=== PATIENT | male | born 1980 | race Hispanic/Latino ===

== ENCOUNTER 2018-06-22 22:39 | Emergency (ER) | payer SELFPAY ==
[2018-06-22] MEDS ORDERED: IBUPROFEN 400 MG TAB ONE (23:46)
--- NOTE | 2018-06-23 01:38 | EDPHYS ---
Physician Documentation [facility] Name: Brad Hdz Age: 38 yrs Sex: Male : 1980 Arrival Date: 06/22/2018 Time: 22:43 Bed 16 Private MD: ED Physician Gorge Jovel HPI: 06/22 23:30 This 38 yrs old Male presents to ER via Ambulatory with complaints of Fall cp Injury, Wrist Injury, Finger Injury, Hand Injury. 23:30 The patient or guardian complains of decreased range of motion, injury, pain, that is cp acute, swelling, tenderness. The complaints affect the right hand, right elbow and right forearm. Context: resulted from a fall. Onset: The symptoms/episode began/occurred 1 week(s) ago. Treatment prior to arrival includes: evaluated at [place] [facility] but patient reports no xrays were taken. 23:30 Associated signs and symptoms: Pertinent negatives: erythema, numbness, tingling, cp weakness. Historical: - Allergies: 06/23 00:10 No Known Allergies; ak1 - Home Meds: 00:10 None [Active]; ak1 - PMHx: 00:10 None; ak1 - PSHx: 00:10 Unable to obtain; ak1 - Immunization history: Last tetanus immunization: - up to date. - Social history:: Smoking status: unknown. - Ebola Screening: : No symptoms or risks identified at this time. ROS: 06/22 23:35 Constitutional: Negative for body aches, chills, fever, poor PO intake. cp 23:35 Eyes: Negative for injury, pain, redness, and discharge. cp 23:35 ENT: Negative for drainage from ear(s), ear pain, sore throat, difficulty swallowing, difficulty handling secretions. 23:35 Cardiovascular: Negative for chest pain, edema, palpitations. 23:35 Respiratory: Negative for cough, shortness of breath, wheezing. 23:35 MS/extremity: Positive for decreased range of motion, pain, swelling, tenderness, of the right wrist and right elbow and right forearm. 23:35 Skin: Negative for cellulitis, rash. 23:35 Neuro: Negative for numbness, tingling, weakness. 23:35 All other systems are negative. Exam: 23:45 Constitutional: The patient appears in no acute distress, alert, awake, non-toxic, well cp developed, well nourished. 23:45 Head/Face: Normocephalic, atraumatic. cp 23:45 Eyes: Periorbital structures: appear normal, Lids and lashes: appear normal, bilaterally. 23:45 ENT: External ear(s): are unremarkable, Nose: is normal, Mouth: is normal, Posterior pharynx: is normal, airway is patent. 23:45 Chest/axilla: Inspection: normal. 23:45 Cardiovascular: Rate: tachycardic. 23:45 Respiratory: the patient does not display signs of respiratory distress, Respirations: normal, no use of accessory muscles, labored breathing, is not present. 23:45 Abdomen/GI: Inspection: abdomen appears normal. 23:45 Musculoskeletal/extremity: Extremities: grossly normal except: noted in the right elbow and right wrist and right forearm: decreased ROM, pain, swelling, tenderness, Perfusion: the extremity is normally perfused throughout, Sensation intact. 23:45 Skin: abscess, not appreciated, cellulitis, is not appreciated, no rash present. 23:45 Neuro: Sensation: no obvious gross deficits. Vital Signs: 22:46 BP 139 / 108; Pulse 106; Resp 16; Temp 98.9; Pulse Ox 100% on R/A; Weight 54.43 kg (R); sr5 Height 5 ft. 11 in. (180.34 cm); Pain 10/10; 06/23 01:10 BP 137 / 99; Pulse 100; Resp 16; Pulse Ox 97% on R/A; Pain 7/10; ak1 06/22 22:46 Body Mass Index 16.74 (54.43 kg, 180.34 cm) sr5 [place] Coma Score: 06/22 22:46 Eye Response: spontaneous(4). Verbal Response: oriented(5). Motor Response: obeys sr5 commands(6). Total: 15. Trauma Score (Adult): 22:46 Eye Response: spontaneous(1); Verbal Response: oriented(1); Motor Response: obeys sr5 commands(2); Systolic BP: > 89 mm Hg(4); Respiratory Rate: 10 to 29 per min(4); [place] Score: 15; Trauma Score: 12 Procedures: 06/23 01:42 Splinting: Splint applied to right elbow and right forearm and right wrist using cp Orthoglass splint, sugartong type. applied by nurse. Examined by me, post splint application: neurovascular intact, Patient tolerated well. MDM: 06/22 23:05 Patient medically screened. cp 06/23 01:28 Data reviewed: vital signs, nurses notes, radiologic studies, plain films. Test cp interpretation: by ED physician or midlevel provider: plain radiologic studies. Counseling: I had a detailed discussion with the patient and/or guardian regarding: the historical points, exam findings, and any diagnostic results supporting the discharge/admit diagnosis, radiology results, the need for outpatient follow up, a orthopedic surgeon, to return to the emergency department if symptoms worsen or persist or if there are any questions or concerns that arise at home. Response to treatment: and as a result, I will discharge patient. 06/22 23:37 Order name: XRAY Hand RIGHT 3 View cp 06/22 23:37 Order name: XRAY Forearm RIGHT cp 06/22 23:37 Order name: XRAY Elbow RIGHT 3 view cp 06/23 01:22 Order name: Sugar Tong Forearm Splint; Complete Time: 01:44 cp Administered Medications: 06/22 23:44 Drug: Ibuprofen 800 mg Route: PO; bp 06/23 01:28 Follow up: Response: No adverse reaction ak1 Disposition: 02:00 Co-signature as Attending Physician, Gorge Jovel MD. rn Disposition: 06/23/18 01:37 Discharged to Home. Impression: Pain in right elbow - s/p fall, Pain in right forearm - s/p fall, Pain in right hand - s/p fall. - Condition is Stable. - Discharge Instructions: Musculoskeletal Pain. - Prescriptions for Naprosyn 500 mg Oral Tablet - take 1 tablet by ORAL route 2 times per day take with food; 20 tablet. - Medication Reconciliation Form, Thank You Letter, Antibiotic Education, Prescription Opioid Use form. - Follow up: Sajan Ha MD; When: 2 - 3 days; Reason: Recheck today's complaints. - Problem is new. - Symptoms have improved. Signatures: Dispatcher [employer] EDGorge Gomes MD MD rn Krenek, Amber RN RN ak1 Jerry Cunningham PA PA cp Resecker, Josias RN RN sr5 Jeremy Ibrahim RN RN bp Corrections: (The following items were deleted from the chart) 01:33 01:22 Sling ordered. cp ak1 01:46 01:37 06/23/2018 01:37 Discharged to Home. Impression: Pain in right elbow - s/p fall; ak1 Pain in right forearm - s/p fall; Pain in right hand - s/p fall. Condition is Stable. Forms are Medication Reconciliation Form, Thank You Letter, Antibiotic Education, Prescription Opioid Use. Follow up: Sajan Ha; When: 2 - 3 days; Reason: Recheck today's complaints. Problem is new. Symptoms have improved. cp
--- NOTE | 2018-06-23 01:38 | ER ---
Nurse's Notes [facility] Name: Brad Hdz Age: 38 yrs Sex: Male : 1980 Arrival Date: 06/22/2018 Time: 22:43 Bed 16 Private MD: Diagnosis: Pain in right elbow-s/p fall;Pain in right forearm-s/p fall;Pain in right hand-s/p fall Presentation: 06/22 22:46 Presenting complaint: Patient states: RIGHT elbow/arm/wrist pain s/p slip in shower 1 sr5 week ago. States seen in [place] [facility], no xrays done at that time, been using a sling and laura wrap with persisting pain. Care prior to arrival: sling/laura. Mechanism of Injury: Fall from standing position. 22:46 Acuity: YUNG 3 sr5 22:46 Method Of Arrival: Ambulatory sr5 06/23 00:15 Transition of care: patient was not received from another setting of care. Onset of ak1 symptoms is unknown. Risk Assessment: Do you want to hurt yourself or someone else? Patient reports no desire to harm self or others. Initial Sepsis Screen: Does the patient meet any 2 criteria? No. Patient's initial sepsis screen is negative. Does the patient have a suspected source of infection? No. Patient's initial sepsis screen is negative. Trauma Activation: Not Applicable Physician: ED Physician; Name: ; Notified At: ; Arrived At: Physician: General Surgeon; Name: ; Notified At: ; Arrived At: Physician: Radiology; Name: ; Notified At: ; Arrived At: Physician: Respiratory; Name: ; Notified At: ; Arrived At: Physician: Lab; Name: ; Notified At: ; Arrived At: Historical: - Allergies: 00:10 No Known Allergies; ak1 - Home Meds: 00:10 None [Active]; ak1 - PMHx: 00:10 None; ak1 - PSHx: 00:10 Unable to obtain; ak1 - Immunization history: Last tetanus immunization: - up to date. - Social history:: Smoking status: unknown. - Ebola Screening: : No symptoms or risks identified at this time. Screenin/25 22:46 Abuse screen: Denies threats or abuse. Tuberculosis screening: No symptoms or risk sr5 factors identified. 06/23 00:15 Nutritional screening: No deficits noted. Fall Risk None identified. ak1 Primary Survey: 06/22 22:46 A: Airway: patent. Breathing/Chest: Respiratory pattern: regular, Respiratory effort: sr5 spontaneous, unlabored. Circulation: Skin color: pink, Skin temperature: warm, dry. Disability Alert. 23:53 Reassessment Breathing/Chest. ak1 Assessment: 22:46 General: Appears uncomfortable, Behavior is calm, cooperative. Pain: Complains of pain sr5 in right arm Pain currently is 10 out of 10 on a pain scale. Quality of pain is described as sharp, Aggravated by repositioning. Neuro: No deficits noted. EENT: No deficits noted. Cardiovascular: Patient's skin is warm and dry. Respiratory: No deficits noted. 23:51 GI: No signs and/or symptoms were reported involving the gastrointestinal system. : ak1 No signs and/or symptoms were reported regarding the genitourinary system. Derm: swelling noted to right hand, right wrist. Musculoskeletal: Range of motion: limited in right elbow and right wrist swelling noted to right hand, right wrist. \E\. Vital Signs: 22:46 BP 139 / 108; Pulse 106; Resp 16; Temp 98.9; Pulse Ox 100% on R/A; Weight 54.43 kg (R); sr5 Height 5 ft. 11 in. (180.34 cm); Pain 10/10; 06/23 01:10 BP 137 / 99; Pulse 100; Resp 16; Pulse Ox 97% on R/A; Pain 7/10; ak1 06/22 22:46 Body Mass Index 16.74 (54.43 kg, 180.34 cm) sr5 [place] Coma Score: 06/22 22:46 Eye Response: spontaneous(4). Verbal Response: oriented(5). Motor Response: obeys sr5 commands(6). Total: 15. Trauma Score (Adult): 22:46 Eye Response: spontaneous(1); Verbal Response: oriented(1); Motor Response: obeys sr5 commands(2); Systolic BP: > 89 mm Hg(4); Respiratory Rate: 10 to 29 per min(4); [place] Score: 15; Trauma Score: 12 ED Course: 22:43 Patient arrived in ED. es 22:46 Patient has correct armband on for positive identification. sr5 22:46 Patient maintains SpO2 saturation greater than 95% on room air. sr5 22:47 Triage completed. sr5 23:02 Keke Gallegos, RN is Primary Nurse. ak1 23:05 Jerry Cunningham PA is PHCP. cp 23:05 Gorge Jovel MD is Attending Physician. cp 06/23 00:15 Pulse ox on. NIBP on. pillow placed under right arm for comfort . ak1 00:16 Arm band placed on Patient placed in an exam room, on a stretcher, Patient notified of ak1 wait time. 00:35 XRAY Hand RIGHT 3 View In Process Unspecified. EDMS 00:35 XRAY Forearm RIGHT In Process Unspecified. EDMS 00:35 XRAY Elbow RIGHT 3 view In Process Unspecified. EDMS 00:35 X-ray completed. Patient tolerated procedure well. Patient moved back from radiology. mh1 01:11 No provider procedures requiring assistance completed. ak1 01:36 Sajan Ha MD is Referral Physician. cp 01:45 Patient did not have IV access during this emergency room visit. Orthoglass splint: ak1 Sugar tong splint applied on right arm. placed by Madi Muir tv technician. cap refill to right fingers less 3 seconds. splinted arm placed in patients personal sling. Administered Medications: 06/22 23:44 Drug: Ibuprofen 800 mg Route: PO; bp 06/23 01:28 Follow up: Response: No adverse reaction ak1 Outcome: 01:37 Discharge ordered by MD. cp 01:44 Discharged to home ambulatory, with family. ak1 01:44 Condition: good 01:44 Discharge instructions given to patient, family, Instructed on discharge instructions, follow up and referral plans. medication usage, wound care, Demonstrated understanding of instructions, follow-up care, splint care, Prescriptions given X 1. 01:46 Patient left the ED. ak1 Signatures: Dispatcher [employer] EDMO Maria Elena Craft Martha 1 Keke Gallegos RN RN ak1 Jerry Cunningham PA PA cp Resecker, Sam RN RN srJeremy Edge RN RN bp Corrections: (The following items were deleted from the chart) 01:12 01:11 Patient admitted, IV remains in place. ak1 ak1
--- NOTE | 2018-06-23 11:25 | RAD REPORT ---
EXAM DESCRIPTION: RAD - Forearm Right - 06/23/2018 12:37 am CLINICAL HISTORY: PAIN History of fall COMPARISON: None FINDINGS: Right elbow, forearm and hand- multiple projections submitted. Soft tissue swelling is seen about the arm. No acute fracture or dislocation is identified. Deformity of the fifth metacarpal is seen, suggesting prior fracture.
--- NOTE | 2018-06-24 09:47 | RAD REPORT ---
EXAM DESCRIPTION: RAD - Hand Right 3 View - 06/23/2018 12:35 am CLINICAL HISTORY: PAIN History of fall COMPARISON: None FINDINGS: Right elbow, forearm and hand- multiple projections submitted. Soft tissue swelling is seen about the arm. No acute fracture or dislocation is identified. Deformity of the fifth metacarpal is seen, suggesting prior fracture.
--- NOTE | 2018-06-24 09:48 | RAD REPORT ---
EXAM DESCRIPTION: RAD - Elbow Right 3 View - 06/23/2018 12:37 am CLINICAL HISTORY: PAIN History of fall COMPARISON: None FINDINGS: Right elbow, forearm and hand- multiple projections submitted. Soft tissue swelling is seen about the arm. No acute fracture or dislocation is identified. Deformity of the fifth metacarpal is seen, suggesting prior fracture.
== END 2018-06-23 01:46 | disposition home or self-care (01) ==
LOC: ER 22:39
DX: M25.521 Pain in right elbow (principal); M79.631 Pain in right forearm; M79.641 Pain in right hand
CPT/HCPCS: 99284